=== PATIENT | male | born 1970 | race Caucasian/White ===

== ENCOUNTER 2016-04-26 16:10 | Emergency (ER) | payer OTHER ==
[~2016-04-26] VITALS: Ht 175.3 cm; Wt 63.5 kg
[~2016-04-26 16:10] MED LIST: HYDROXYZINE HCL10 M1 PO; HYDROXYZINE PA100 MG PO; KEFLEX500 MG PO; NOHOMEMEDICATIONS; NORCO 5-325 TA1 EACH PO; TRAMADOL 50 MG50 MG PO
[2016-04-26 17:21] LABS: ABSOLUTE NEUTROPHILS 5.1 thou/uL (1.4-8.2); BASOPHILS 1.3 % (0.0-2.0); HEMOGLOBIN 13.8 gm/dL (14.0-18.0); LYMPHOCYTES 26.3 % (24.0-44.0); MANUAL DIFF NO; MCH 28.4 pg (26.0-34.0); MCHC 33.7 % (28.0-37.0); MCV 84.3 fL (80.0-100.0); MONOCYTES 7.3 % (1.0-8.0); PLATELET COUNT 232 thou/uL (150-400); POLYS 63.1 % (36.0-66.0); RBC 4.87 mil/uL (4.50-6.00); RDW 13.9 % (10.5-14.5)
[2016-04-26 17:40] LABS: CALCIUM 8.9 mg/dL (8.5-10.1); CREATININE 0.9 mg/dL (0.6-1.3)
[2016-04-26 17:45] LABS: ALBUMIN 3.8 g/dL (3.4-5.0); TOTAL BILIRUBIN 0.5 mg/dL (<0.1-1.0); TOTAL PROTEIN 7.4 g/dL (6.4-8.2)
[2016-04-26 18:55] LABS: URINE BILIRUBIN NEGATIVE (Negative); URINE BLOOD NEGATIVE (Negative); URINE COLOR YELLOW; URINE GLUCOSE-RANDOM* NEGATIVE (Negative); URINE KETONES NEGATIVE (Negative); URINE NITRITE NEGATIVE (Negative); URINE PROTEIN (DIPSTICK) NEGATIVE (Negative); URINE UROBILINOGEN 0.2 E.U./dl (0.2-1.0)
[2016-04-26 19:05] LABS: AMP/METHAMP Negative (Negative); BARBITURATES Negative (Negative); BENZODIAZEPINES Negative (Negative); COCAINE Negative (Negative); METHADONE Negative (Negative); OPIATES Negative (Negative); PCP Negative (Negative); THC POSITIVE (Negative)
[2016-04-26] MEDS ORDERED: ONDANSETRON HCL4 M2 PO (19:17)
== END 2016-04-26 19:29 | disposition home or self-care (01) ==
LOC: ER 16:10
PROVIDERS: Nurse Practitioner Family
DX: B34.9 Viral infection, unspecified (principal); F41.9 Anxiety disorder, unspecified; F17.220 Nicotine dependence, chewing tobacco, uncomplicated

== ENCOUNTER 2018-01-19 13:27 | Emergency (ER) | payer OTHER ==
[~2018-01-19] VITALS: Ht 175.3 cm; Wt 63.5 kg
--- NOTE | ~2018-01-19 | EKG ---
[place] [address] [facility] [place] [address] ELECTROCARDIOGRAM REPORT Name: [facility] Room #: [facility] [id number] Admission: 01/19/18 Attend Phys: Discharge: 01/19/18 Date of : 74 Report #: [id number] THIS REPORT FOR: //name// [facility] ED Test Date: 2018-01-19 Test Time: 13:49:35 Pat Name: CHEMA WALLACE Department: Room: Gender: [employer]: MORGAN : 1970 Requested By: Anil Mai Order Number: [id number] MD: Drake Perera Measurements Intervals [place] Rate: 64 P: 64 AK: 174 QRS: 41 QRSD: 108 T: 48 QT: 389 QTc: 402 Interpretive Statements Sinus rhythm RSR' in V1 or V2, probably normal variant No previous ECG available for comparison Electronically Signed On 01-20-2018 8:06:11 CDT by Drake Perera [email or web address] <ELECTRONICALLY SIGNED> By: Drake Perera MD, [facility] 01/20/18 0806 [id number] Drake Perera MD, FACC /EPI
[~2018-01-19 13:27] MED LIST changes: +ONDANSETRON HCL4 M2 PO
[2018-01-19 13:53] LABS: URINE BILIRUBIN NEGATIVE (Negative); URINE BLOOD NEGATIVE (Negative); URINE CLARITY CLEAR; URINE COLOR YELLOW; URINE GLUCOSE-RANDOM* NEGATIVE (Negative); URINE KETONES NEGATIVE (Negative); URINE LEUKOCYTES-REFLEX NEGATIVE (Negative); URINE NITRITE-REFLEX NEGATIVE (Negative); URINE PROTEIN (DIPSTICK) NEGATIVE (Negative); URINE SPECIFIC GRAVITY 1.025 (1.005-1.035)
[2018-01-19 14:09] LABS: ABSOLUTE NEUTROPHILS 5.9 thou/uL (1.4-8.2); BASOPHILS 1.1 % (0.0-2.0); EOSINOPHILS 1.8 % (0.0-3.0); HEMATOCRIT 42.3 % (42.0-52.0); HEMOGLOBIN 14.5 gm/dL (14.0-18.0); LYMPHOCYTES 26.5 % (24.0-44.0); MCH 29.2 pg (26.0-34.0); MCHC 34.3 g/dL (28.0-37.0); MCV 85.2 fL (80.0-100.0); MONOCYTES 8.2 % (1.0-8.0); PLATELET COUNT 268 thou/uL (150-400); POLYS 62.4 % (36.0-66.0); RBC 4.97 mil/uL (4.50-6.00); RDW 13.8 % (10.5-14.5); WBC 9.4 thou/uL (4.0-11.0)
[2018-01-19 14:16] LABS: ANION GAP 14 mmol/L (7-16); BUN 14 mg/dL (7-18); CALCIUM 9.4 mg/dL (8.5-10.1); CHLORIDE 99 mmol/L (98-107); CO2 27 mmol/L (21-32); CREATININE 0.9 mg/dL (0.7-1.3); GLUCOSE 105 mg/dL (74-106); POTASSIUM 3.6 mmol/L (3.5-5.1); SODIUM 140 mmol/L (136-145)
[2018-01-19 14:25] LABS: ALBUMIN 3.9 g/dL (3.4-5.0); LIPASE 113 U/L (73-393); SGOT 26 U/L (15-37); SGPT 21 U/L (30-65); TOTAL BILIRUBIN 1.2 mg/dL (<0.1-1.0); TROPONIN-I <0.06 ng/mL (<0.06)
[2018-01-19] MEDS ORDERED: ZOFRAN4 MG PO (15:49)
== END 2018-01-19 16:03 | disposition home or self-care (01) ==
LOC: ER 13:27
PROVIDERS: Emergency Medicine
DX: E86.0 Dehydration (principal); R11.10 Vomiting, unspecified; F17.220 Nicotine dependence, chewing tobacco, uncomplicated; F41.9 Anxiety disorder, unspecified

== ENCOUNTER 2018-05-14 05:19 | Emergency (ER) | payer OTHER ==
[~2018-05-14] VITALS: Ht 175.3 cm; Wt 63.5 kg
[~2018-05-14 05:19] MED LIST changes: +ZOFRAN4 MG PO
[2018-05-14] MEDS ORDERED: NAPROSYN500 MG PO (05:21)
[2018-05-14 05:44] VITALS: BP 112/74
== END 2018-05-14 05:45 | disposition home or self-care (01) ==
LOC: ER 05:19
DX: S00.01XA Abrasion of scalp, initial encounter (principal); F41.9 Anxiety disorder, unspecified; Z77.22 Contact with and (suspected) exposure to environmental tobacco smoke (acute) (chronic); W00.0XXA Fall on same level due to ice and snow, initial encounter; Y92.89 Other specified places as the place of occurrence of the external cause; Y93.89 Activity, other specified; Y99.8 Other external cause status

== ENCOUNTER 2020-12-21 18:54 | Emergency (ER) | payer OTHER ==
[~2020-12-21] VITALS: Ht 175.3 cm; Wt 63.5 kg
[~2020-12-21 18:54] MED LIST changes: +NAPROSYN500 MG PO
[2020-12-21 19:05] VITALS: BP 98/73
== END 2020-12-21 20:36 | disposition home or self-care (01) ==
LOC: ER 18:54
DX: N48.89 Other specified disorders of penis (principal)